=== PATIENT | male | born 1975 | race Caucasian/White ===

== ENCOUNTER 2017-05-01 10:36 | Emergency (ER) | payer MEDICAID ==
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
[2017-05-01] MEDS ORDERED: TDAP ADULT 0.5 ML INJ (BOOSTRIX) IM ONE (10:53)
[2017-05-01] MEDS ORDERED: IBUPROFEN 600 MG TAB PO ONE (13:50)
[2017-05-01 13:53] VITALS: BP 136/91; PULSE 78; RESP 16; TEMP 97.2; O2SAT 96
== END 2017-05-01 13:53 | disposition home or self-care (01) ==
PROC: 3E0234Z Introduction of Serum, Toxoid and Vaccine into Muscle, Percutaneous Approach (ICD-10-PCS; principal; 2017-05-01)
DX: S22.31XA Fracture of one rib, right side, initial encounter for closed fracture (principal); S00.03XA Contusion of scalp, initial encounter; S63.641A Sprain of metacarpophalangeal joint of right thumb, initial encounter; Z23 Encounter for immunization; Y08.89XA Assault by other specified means, initial encounter